=== PATIENT | male | born 1965 ===

== ENCOUNTER 2025-05-13 10:45 | Inpatient (IN) | payer OTHER ==
[~2025-05-13] VITALS: Ht 172.7 cm; Wt 81.6 kg
[2025-05-14 16:06] VITALS: BP 142/83
[2025-05-14 16:09] VITALS: BP 116/76
[2025-05-19] MEDS ORDERED: CEFAZOLIN SODIUM 1,000 MG VIAL ONE (07:02)
[2025-05-19] MEDS ORDERED: ENOXAPARIN SODIUM 40 MG/0.4 ML SYRINGE SUBCUTANEO ONE (07:03)
[2025-05-19] MEDS ORDERED: HEMOSTATIC MATRIX 1 KIT KIT TOP ONE (08:40)
[2025-05-19] MEDS ORDERED: SURGIFLO APPLICATOR 1 EACH APPL TOP ONE (08:40)
[2025-05-19] MEDS ORDERED: SUGAMMADEX SODIUM 200 MG/2 ML VIAL IV ONE (10:44)
[2025-05-19] MEDS ORDERED: RINGERS SOLUTION,LACTATED 1,000 ML IV SCH (10:45)
[2025-05-19] MEDS ORDERED: ONDANSETRON HCL 2 MG/ML VIAL IV PRN (10:45)
[2025-05-19] MEDS ORDERED: OxyCODONE HCL 5 MG TABLET (ROXICODONE) PO PRN (10:45)
[2025-05-19] MEDS ORDERED: MORPHINE SULFATE 4 MG/ML CARTRIDGE IV PRN (10:45)
[2025-05-19] MEDS ORDERED: ONDANSETRON HCL 2 MG/ML VIAL ONE (12:35)
[2025-05-19] MEDS ORDERED: ONDANSETRON HCL 2 MG/ML VIAL IV ONE (12:40)
[2025-05-19] MEDS ORDERED: LEVOFLOXACIN250 MG PO (14:04)
[2025-05-19] MEDS ORDERED: ATORVASTATIN CA10 MG PO (14:04)
[2025-05-19 16:38] LABS: BASO % 0.1 % (0.1-1.2); EOS # 0.00 (0.04-0.54); EOS % 0.0 % (0.7-7.0); LYMPH # 0.49 (1.18-3.74); LYMPH % 4.0 % (19.3-53.1); MEAN PLATELET VOLUME 9.50 fl (9.4-12.4); MONO # 0.48 (0.24-0.82); MONO % 4.0 % (4.7-12.5); NEUT # 11.08 (1.56-6.13); NEUT % 91.6 % (34.0-71.1); RED CELL DISTRIBUTION WIDTH 13.1 % (11.6-14.4)
[2025-05-19] MEDS ORDERED: GABAPENTIN 300 MG CAPSULE PO SCH (17:00)
[2025-05-19 17:07] LABS: BUN CREA RATIO 12.0 (7.0-25.0); CREATININE SERUM 2.93 mg/dL (0.70-1.30); GFR 22.04; GLUCOSE FASTING 111.0 mg/dL (65-100); OSMOLALITY SERUM 290.0 MOSM/KG (275-295)
[2025-05-19] MEDS ORDERED: CEFAZOLIN SODIUM 1,000 MG VIAL IV SCH (21:00)
[2025-05-19] MEDS ORDERED: FAMOTIDINE/PF 20 MG/2 ML VIAL IV SCH (21:00)
[2025-05-20 00:30] VITALS: BP 144/86; O2SAT 98
[2025-05-20 07:34] LABS: BASO % 0.3 % (0.1-1.2); EOS # 0.06 (0.04-0.54); EOS % 0.9 % (0.7-7.0); LYMPH # 1.17 (1.18-3.74); LYMPH % 17.0 % (19.3-53.1); MEAN PLATELET VOLUME 9.90 fl (9.4-12.4); MONO # 0.84 (0.24-0.82); NEUT # 4.78 (1.56-6.13); NEUT % 69.3 % (34.0-71.1); RED CELL DISTRIBUTION WIDTH 13.4 % (11.6-14.4)
[2025-05-20 07:46] VITALS: BP 126/72; O2SAT 96
[2025-05-20 07:51] LABS: BUN CREA RATIO 9.0 (7.0-25.0); CREATININE SERUM 3.11 mg/dL (0.70-1.30); GFR 20.58; GLUCOSE FASTING 89.0 mg/dL (65-100); OSMOLALITY SERUM 294.0 MOSM/KG (275-295)
[2025-05-20 08:03] LABS: MONO % 12.2 % (4.7-12.5)
[2025-05-20] MEDS ORDERED: ENOXAPARIN SODIUM 40 MG/0.4 ML SYRINGE SUBCUTANEO SCH (09:00)
== END 2025-05-20 11:57 | disposition home or self-care (01) | DRG 718 ==
LOC: O/R 05-19 06:00 → SURH 05-19 10:45 → SURG 05-19 14:28
PROVIDERS: ADMIT Urology; ATTEND Urology
PROC: 8E0W4CZ Robotic Assisted Procedure of Trunk Region, Percutaneous Endoscopic Approach (ICD-10-PCS; 2025-05-19)
PROC: 0VB04ZZ Excision of Prostate, Percutaneous Endoscopic Approach (ICD-10-PCS; principal; 2025-05-19 07:00)
DX: N40.1 Benign prostatic hyperplasia with lower urinary tract symptoms (principal)
CPT/HCPCS: 55867; S2900